=== PATIENT | female | born 1960 | race Caucasian/White ===

== ENCOUNTER 2017-08-26 10:05 | Emergency (ER) | payer BC ==
--- NOTE | 2017-08-26 11:12 | ER Document Report ---
ED Extremity Problem, Lower - General Chief Complaint: Leg Pain Stated Complaint: RIGHT LEG PAIN Time Seen by Provider: 08/26/17 10:34 Mode of Arrival: Ambulatory Information source: Patient Notes: 56-year-old female presents to ED for complaint of right upper leg pain. She states it started worse last night. She states she flew from [place] to [place] on Tuesday. She states she has been having some pain in her right hip and got a cortisone shot for IT band and bursitis. Then she flew to [place] and she went to Dr. Gray this morning who stated that he would have to get paperwork and approval in order to get an MRI to find out why her leg is worse and then she talked to him about the fact that she flew when he stated that she would probably benefit from coming to the emergency room and getting a venous Doppler to ensure she does not have clots. I will get the venous Doppler done on the right leg. Patient has a history of a long flight has a history of previous cancer. She does not smoke she does not drink and she does not use drugs. TRAVEL OUTSIDE OF THE [place] IN LAST 30 DAYS: No - HPI Patient complains to provider of: Pain, Swelling Location: Thigh - Right Occurred: Last week Onset/Duration: Gradual, Worse Quality of pain: Burning Severity: Moderate Pain Level: 4 Context: Recent travel Recent injury: No Associated symptoms: Painful ambulation Exacerbated by: Movement, Walking Relieved by: Nothing - Related Data Allergies/Adverse Reactions: Sulfa (Sulfonamide Antibiotics) Allergy (Verified 08/26/17 11:17) Past Medical History - General Information source: Patient - Social History Smoking Status: Never Smoker Cigarette use (# per day): No Chew tobacco use (# tins/day): No Smoking Education Provided: No Frequency of alcohol use: None Drug Abuse: None Lives with: Family Family History: Reviewed & Not Pertinent Patient has suicidal ideation: No Patient has homicidal ideation: No - Past Medical History Cardiac Medical History: Reports: None Pulmonary Medical History: Reports: None EENT Medical History: Reports: None Neurological Medical History: Reports: None Endocrine Medical History: Reports: None Renal/ Medical History: Reports: None Malignancy Medical History: Reports: Hx Breast Cancer GI Medical History: Reports: None Musculoskeltal Medical History: Reports Hx Musculoskeletal Deformity, Reports Hx Musculoskeletal Trauma Skin Medical History: Reports None Psychiatric Medical History: Reports: None Traumatic Medical History: Reports: None Past Surgical History: Reports: Hx Breast Surgery - Left breasl surgeries to include lumpectomy and lymph node removal cancer - Immunizations Immunizations up to date: Yes Review of Systems - Review of Systems Constitutional: No symptoms reported EENT: No symptoms reported Cardiovascular: No symptoms reported Respiratory: No symptoms reported Gastrointestinal: No symptoms reported Genitourinary: No symptoms reported Female Genitourinary: No symptoms reported Musculoskeletal: Other - Right thigh pain burning swelling Skin: No symptoms reported Hematologic/Lymphatic: No symptoms reported Neurological/Psychological: No symptoms reported Physical Exam - Vital signs Vitals: Temp Pulse Resp BP Pulse Ox 97.9 F 81 20 150/87 H 99 08/26/17 10:30 08/26/17 10:30 08/26/17 10:30 08/26/17 10:30 08/26/17 10:30 Interpretation: Normal - General General appearance: Appears well, Alert - HEENT Head: Normocephalic, Atraumatic Eyes: Normal Pupils: PERRL - Respiratory Respiratory status: No respiratory distress Chest status: Nontender Breath sounds: Normal Chest palpation: Normal - Cardiovascular Rhythm: Regular Heart sounds: Normal auscultation Murmur: No - Abdominal Inspection: Normal Distension: No distension Bowel sounds: Normal Tenderness: Nontender Organomegaly: No organomegaly - Back Back: Normal, Nontender - Extremities General upper extremity: Normal inspection, Nontender, Normal color, Normal ROM , Normal temperature General lower extremity: Normal inspection, Normal color, Normal ROM, Normal temperature, Normal weight bearing. No: Eliot's sign Hip: Tender, Pain with ROM. No: Abrasion, Deformity, Dislocation, Ecchymosis, Instability, Laceration, Unable to bear weight Thigh: Tender. No: Abrasion, Deformity, Dislocation, Ecchymosis, Instability, Laceration, Unable to bear weight Knee: Tender - Posterior, Pain with ROM, Patellar tendon intact. No: Abrasion, Deformity, Drawer's test instability, Ecchymosis, Instability, Joint effusion, Laceration, Laxity with valgus stress, Laxity with varus stress, Popliteal fossa tender, Tender joint line, Unable to bear weight Calf: Normal, Nontender Ankle: Normal, Nontender Foot: Normal, Nontender - Neurological Neuro grossly intact: Yes Cognition: Normal Orientation: AAOx4 Karina Coma Scale Eye Opening: Spontaneous [place] Coma Scale Verbal: Oriented [place] Coma Scale Motor: Obeys Commands Karina Coma Scale Total: 15 Speech: Normal Motor strength normal: LUE, RUE, LLE, RLE Sensory: Normal - Psychological Associated symptoms: Normal affect, Normal mood - Skin Skin Temperature: Warm Skin Moisture: Dry Skin Color: Normal Course - Re-evaluation Re-evalutation: 08/26/17 21:50 Seen today for pain to the posterior thigh and knees. Patient states she has been to her doctor and he stated he could not get an MRI. She does have a history of bursitis and IT band. She states that she went to her doctor still and he stated he would not be able to get the MRI unless she got approval from the insurance company. She stated she was concerned that she might have a clot so Dr. [facility] to the emergency room to have a venous Doppler completed. Venous Doppler was ordered and completed. Venous Doppler was negative. Patient was discharged home to follow-up with the primary doctor and a copy of the venous Doppler given to her to take to the primary doctor here at [facility] and when she returns to [place] to take her to her primary doctor in [place]. Patient does have a history of breast cancer. - Vital Signs Vital signs: Temp Pulse Resp BP Pulse Ox 97.9 F 83 18 149/98 H 99 08/26/17 13:17 08/26/17 13:17 08/26/17 13:17 08/26/17 13:17 08/26/17 13:17 - Diagnostic Test Radiology reviewed: Reports reviewed - Venous Doppler negative Discharge - Discharge Clinical Impression: Leg pain Qualifiers: Laterality: right Qualified Code(s): M79.604 - Pain in right leg Condition: Stable Disposition: HOME, SELF-CARE Additional Instructions: Leg Pain, Nonspecific We did not find an obvious cause for your leg pain. There's no sign of blood clot, infection, or other serious disease. Possible causes of vague leg pain include muscle or joint inflammation, disc disease in the lower back, pressure on the nerves in the back, or reduced blood flow through the arteries of the leg. Rest the leg. Pain can be eased with an antiinflammatory pain medicine such as ibuprofen. If the pain involves a small area, a heating pad might help. Call the doctor or return if the leg becomes swollen, weak, discolored, or increasingly painful, or if you develop any other significant change in your health. Been seen several times by your primary doctor for this leg pain. You concern today was that you had flown from [place] to [place] and you are concerned that she may have a blood clot. Your venous Doppler is negative there is no blood clot in your leg today. I have given you a copy of the venous Doppler please take this with you to the primary doctor and take it back with you to [place]. Please continue all medications that your primary doctor has been using on your leg. Elevate and leg for comfort. FOLLOW-UP CARE: If you have been referred to a physician for follow-up care, call the physician s office for an appointment as you were instructed or within the next two days. If you experience worsening or a significant change in your symptoms, notify the physician immediately or return to the Emergency Department at any time for re-evaluation. Referrals: GIANA CHAPMAN MD [HONORARY] - Follow up as needed
--- NOTE | 2017-08-26 12:32 | RADIOLOGY REPORT (SQ) ---
EXAM DESCRIPTION: VENOUS UNILATERAL LOWER COMPLETED DATE/TIME: 08/26/2017 12:23 pm REASON FOR STUDY: Right leg pain swelling flew from [place] to hear [place] COMPARISON: None. TECHNIQUE: Dynamic and static gong scale and color images acquired of the right leg venous system. S elected spectral images acquired with additional compression and augmentation maneuvers. The contrala teral common femoral vein and saphenofemoral junction were also imaged. Images stored on PACS. LIMITATIONS: None. FINDINGS: COMMON FEMORAL: Normal phasicity, compression and augmentation. No visualized echogenic ma terial on gong scale. No defects on color images. FEMORAL: Normal compression and augmentation. No visualized echogenic material on gong scale. No defe cts on color images. POPLITEAL: Normal compression, augmentation. No visualized echogenic material on gong scale. No defec ts on color images. CALF VESSELS: Normal compression, augmentation. No visualized echogenic material on gong scale. No de fects on color images. GSV and SSV: Normal compression, augmentation. No visualized echogenic material on gong scale. No def ects on color images. ANY DEEP VENOUS INSUFFICIENCY: Not evaluated. ANY EVIDENCE OF POPLITEAL CYST: No. OTHER: No other significant finding. CONTRALATERAL COMMON FEMORAL VEIN AND SAPHENOFEMORAL JUNCTION: Normal phasicity, compression and augmentation. No visualized echogenic material on gong scale. No de fects on color images. IMPRESSION: NO EVIDENCE DVT OR SVT IN THE RIGHT LEG. TECHNICAL DOCUMENTATION: JOB ID: [id number] [employer]- All Rights Reserved Reading location - IP/workstation name: [email or web address]
[2017-08-26 13:28] VITALS: BP 149/98
== END 2017-08-26 13:28 | disposition home or self-care (01) ==
LOC: ER 10:05
DX: M79.604 Pain in right leg (principal); Z85.3 Personal history of malignant neoplasm of breast; Z88.2 Allergy status to sulfonamides
CPT/HCPCS: 93971; 99283